=== PATIENT | female | born 1945 | race Two or more races ===

== ENCOUNTER 2020-11-12 12:22 | Inpatient (IN) | payer OTHER ==
[~2020-11-12] VITALS: Ht 167.6 cm; Wt 52.2 kg
[2020-11-12] MEDS ORDERED: methylPREDNISolone SOD SUCC 125 MG/2 ML VL IV ONE (12:30)
[2020-11-12] MEDS ORDERED: CHOLECALCIFEROL (VITD3) 2,000 UNIT CAP/TAB PO ONE (13:30)
[2020-11-12] MEDS ORDERED: ZINC SULFATE 220mg CAP or TAB PO ONE (13:30)
[2020-11-12] MEDS ORDERED: ASCORBIC ACID 500 MG TAB PO ONE (13:30)
[2020-11-12] MEDS ORDERED: AZITHROMYCIN 500MG/ 250ML 250 ML IV ONE (13:30)
[2020-11-12 13:48] LABS: Basophils # (auto) 0 10 ^3/uL (0-0.2); Eosinophils # (auto) 0 10 ^3/uL (0-0.8); Eosinophils % (auto) 1.1 % (0.0-7.0); Hematocrit 40.6 % (36.0-46.0); Hemoglobin 14.4 g/dL (12.2-16.2); Lymphocytes # (auto) 1.3 10 ^3/uL (0.4-5.4); Lymphocytes % (auto) 30.6 % (10.0-50.0); Mean Corpuscular Hgb Conc. 35.5 g/dL (32.0-36.0); Mean Corpuscular Volume 92.9 fL (80.0-100.0); Monocytes # (auto) 0.5 10 ^3/uL (0-1.3); Monocytes % (auto) 11.3 % (0.0-12.0); Neutrophils # (auto) 2.4 10 ^3/uL (1.6-8.6); Nucleated Red Blood Cells % 0.1 %; Platelet Count (auto) 239 10^3/uL (140-450); Red Blood Cells 4.37 10^6/uL (4.0-5.20); Red Cell Distribution Width 12.3 % (11.8-14.3); White Blood Cell 4.2 10^3/uL (4.4-10.8)
[2020-11-12 14:13] LABS: Albumin 2.6 g/dL (3.4-5.0); Anion Gap 5 (5-15); Blood Urea Nitrogen 12 mg/dL (7-18); Calcium 8.2 mg/dL (8.5-10.1); Carbon Dioxide 26 mmol/L (21-32); Chloride 110 mmol/L (98-107); Glucose 114 mg/dL (74-106); Potassium 3.5 mmol/L (3.5-5.1); Sodium 141 mmol/L (136-145)
[2020-11-12 14:22] LABS: Alanine Aminotransferase 22 U/L (13-56); Alkaline Phosphatase 57 U/L (45-117); Aspartate Aminotransferase 29 U/L (15-37); BUN/Creatinine Ratio 21.8; Bilirubin, Total 0.6 mg/dL (0.2-1.0); CRP High Sensitivity 4.73 mg/dL (< 0.3); GFR African American 139 mL/min; GFR Non-African American 115 mL/min; Total Protein 6.4 g/dL (6.4-8.2)
[2020-11-12] MEDS ORDERED: NITROGLYCERIN 0.4 MG SL TAB SL PRN (15:15)
[2020-11-12] MEDS ORDERED: MORPHINE SULF INJ 2 MG/ML SYRINGE 1ML IV PRN (15:15)
[2020-11-12] MEDS ORDERED: traMADol HCL 50 MG TAB PO PRN (15:30)
[2020-11-12] MEDS ORDERED: ACETAMINOPHEN 500 MG TAB PO PRN (15:30)
[2020-11-12] MEDS ORDERED: DEXTROSE (50%) 50ML SYRG IV PRN ×2 (15:30→22:15)
[2020-11-12] MEDS ORDERED: LACTULOSE 20Gm/30ML SOLN PO PRN (15:30)
[2020-11-12] MEDS ORDERED: TEMAZEPAM 15 MG CAP PO PRN (15:30)
[2020-11-12 16:00] VITALS: BP 134/72
[2020-11-12] MEDS: SODIUM CHLORIDE 0.9% 1,000 ML IV SCH (16:15)
[2020-11-12] MEDS: ACCU-CHEK COMFORT CURVE STRIP VI SCH ×2 (18:00→21:30)
[2020-11-12 19:56] VITALS: BP 130/75
[2020-11-12] MEDS: FLORASTOR (S. BOULARDII) 250 MG CAP PO SCH (21:29)
[2020-11-12] MEDS: ENOXAPARIN SOD 40 MG/0.4 ML SYRINGE SC SCH (21:30)
[2020-11-12] MEDS: BUDESONIDE (INHALATION) 180 MCG IH IN SCH (21:55)
[2020-11-12 22:00] VITALS: BP 130/75
[2020-11-12] MEDS ORDERED: DOXYCYCLINE 100 MG TAB/CAP PO SCH (22:00)
[2020-11-13] MEDS ORDERED: ATOR20TA50 PO (00:45)
[2020-11-13] MEDS ORDERED: PNEUMOCOCCAL VACC POLYS 25 MCG/0.5 ML VIAL IM ONE (01:30)
[2020-11-13] MEDS ORDERED: INFLUENZA QUAD 2020-2021 0.5 ML SYRG IM ONE (01:30)
[2020-11-13 05:00] VITALS: BP 111/65
[2020-11-13] MEDS: SODIUM CHLORIDE 0.9% 1,000 ML IV SCH (05:45)
[2020-11-13] MEDS: ACCU-CHEK COMFORT CURVE STRIP VI SCH ×4 (06:53→21:27)
[2020-11-13] MEDS: InsuLIN REG 1unit/0.01ml Soln (100units/ml) SC SCH ×4 (06:53→21:27)
[2020-11-13 07:23] LABS: Albumin 2.5 g/dL (3.4-5.0); BUN/Creatinine Ratio 26.1; Calcium 8.1 mg/dL (8.5-10.1); Potassium 3.9 mmol/L (3.5-5.1)
[2020-11-13 07:26] LABS: Bilirubin, Total 0.4 mg/dL (0.2-1.0); Total Protein 6.1 g/dL (6.4-8.2)
[2020-11-13 07:42] LABS: Basophils # (auto) 0 10 ^3/uL (0-0.2); Basophils % (auto) 0.4 % (0.0-2.0); Eosinophils # (auto) 0 10 ^3/uL (0-0.8); Hematocrit 39.5 % (36.0-46.0); Hemoglobin 13.8 g/dL (12.2-16.2); Lymphocytes # (auto) 0.8 10 ^3/uL (0.4-5.4); Lymphocytes % (auto) 23.8 % (10.0-50.0); Mean Corpuscular Hemoglobin 32.4 pg (28.0-32.0); Mean Corpuscular Hgb Conc. 34.8 g/dL (32.0-36.0); Mean Corpuscular Volume 93.2 fL (80.0-100.0); Monocytes # (auto) 0.4 10 ^3/uL (0-1.3); Monocytes % (auto) 10.4 % (0.0-12.0); Neutrophils # (auto) 2.3 10 ^3/uL (1.6-8.6); Neutrophils % (auto) 65.4 % (37.0-80.0); Nucleated Red Blood Cells % 0.4 %; Platelet Count (auto) 292 10^3/uL (140-450); Red Blood Cells 4.25 10^6/uL (4.0-5.20); Red Cell Distribution Width 12.5 % (11.8-14.3); White Blood Cell 3.5 10^3/uL (4.4-10.8)
[2020-11-13 08:00] VITALS: BP 109/66
[2020-11-13 08:42] VITALS: BP 109/66
[2020-11-13] MEDS: ALBUTEROL SULF HFA 90MCG INH 200DOSE IN PRN ×3 (10:25→19:24)
[2020-11-13] MEDS: BUDESONIDE (INHALATION) 180 MCG IH IN SCH ×2 (10:25→19:24)
[2020-11-13] MEDS: DexAMETHasone SOD PHOS 10MG/1ML VIAL INJ IV SCH (10:32)
[2020-11-13] MEDS: ASCORBIC ACID 1,000 MG TAB PO SCH (10:33)
[2020-11-13] MEDS: FLORASTOR (S. BOULARDII) 250 MG CAP PO SCH ×2 (10:33→21:20)
[2020-11-13] MEDS: ZINC SULFATE 220mg CAP or TAB PO SCH (10:33)
[2020-11-13] MEDS: levoFLOXacin 500MG 100 ML IV SCH (10:33)
[2020-11-13] MEDS: CHOLECALCIFEROL (VITD3) 2,000 UNIT CAP/TAB PO SCH (10:34)
[2020-11-13] MEDS: ENOXAPARIN SOD 40 MG/0.4 ML SYRINGE SC SCH ×2 (10:34→21:21)
[2020-11-13 13:00] VITALS: BP 116/71
[2020-11-13 17:00] VITALS: BP 120/71
[2020-11-13] MEDS ORDERED: REMDESIVIR PER PHARMACY 0 ML IV SCH (17:30)
[2020-11-13] MEDS ORDERED: REMDESIVIR 200 MG in NS 210ml LOADING DOSE ADULT IV ONE (17:45)
[2020-11-13] MEDS: ARTIFICIAL TEARS 15ml EACHEYE PRN (21:27)
[2020-11-13 22:00] VITALS: BP 112/71
[2020-11-14] MEDS: ONDANSETRON HCL 4 MG/2 ML VIAL IV PRN ×2 (00:03→11:34)
[2020-11-14 05:00] VITALS: BP 120/71
[2020-11-14] MEDS: InsuLIN REG 1unit/0.01ml Soln (100units/ml) SC SCH ×4 (06:26→22:00)
[2020-11-14] MEDS: ACCU-CHEK COMFORT CURVE STRIP VI SCH ×4 (06:26→22:05)
[2020-11-14] MEDS: ALBUTEROL SULF HFA 90MCG INH 200DOSE IN PRN ×2 (07:18→21:54)
[2020-11-14] MEDS: BUDESONIDE (INHALATION) 180 MCG IH IN SCH ×2 (07:18→21:54)
[2020-11-14 08:00] VITALS: BP 103/60
[2020-11-14 09:00] VITALS: BP 103/60
[2020-11-14] MEDS: levoFLOXacin 500MG 100 ML IV SCH (09:16)
[2020-11-14] MEDS: ZINC SULFATE 220mg CAP or TAB PO SCH (09:16)
[2020-11-14] MEDS: CHOLECALCIFEROL (VITD3) 2,000 UNIT CAP/TAB PO SCH (09:16)
[2020-11-14] MEDS: ASCORBIC ACID 1,000 MG TAB PO SCH (09:16)
[2020-11-14] MEDS: FLORASTOR (S. BOULARDII) 250 MG CAP PO SCH ×2 (09:16→22:06)
[2020-11-14] MEDS: ENOXAPARIN SOD 40 MG/0.4 ML SYRINGE SC SCH ×2 (09:16→22:06)
[2020-11-14] MEDS: DexAMETHasone SOD PHOS 10MG/1ML VIAL INJ IV SCH (09:17)
[2020-11-14 12:44] LABS: Potassium 4.1 mmol/L (3.5-5.1)
[2020-11-14 12:49] LABS: Albumin 2.5 g/dL (3.4-5.0); BUN/Creatinine Ratio 30.8; Calcium 8.2 mg/dL (8.5-10.1)
[2020-11-14 12:51] LABS: Bilirubin, Total 0.3 mg/dL (0.2-1.0); Total Protein 6.1 g/dL (6.4-8.2)
[2020-11-14 13:00] VITALS: BP 121/67
[2020-11-14] MEDS: ARTIFICIAL TEARS 15ml EACHEYE PRN ×2 (13:00→19:58)
[2020-11-14] MEDS: REMDESIVIR 100mg 100 MG in SODIUM CHL 0.9% 230 ML IV SCH (15:24)
[2020-11-14 17:00] VITALS: BP 106/67
[2020-11-14 22:00] VITALS: BP 108/68
[2020-11-15] VITALS (7 sets, daily range): BP systolic 99–114; BP diastolic 65–78
[2020-11-15] MEDS: ARTIFICIAL TEARS 15ml EACHEYE PRN ×2 (04:12→17:49)
[2020-11-15] MEDS: ACCU-CHEK COMFORT CURVE STRIP VI SCH ×4 (06:28→23:24)
[2020-11-15] MEDS: InsuLIN REG 1unit/0.01ml Soln (100units/ml) SC SCH ×4 (06:28→22:00)
[2020-11-15 06:31] LABS: Potassium 3.9 mmol/L (3.5-5.1)
[2020-11-15] MEDS: ALBUTEROL SULF HFA 90MCG INH 200DOSE IN PRN ×2 (06:40→19:56)
[2020-11-15] MEDS: BUDESONIDE (INHALATION) 180 MCG IH IN SCH ×2 (06:40→19:56)
[2020-11-15 06:45] LABS: Albumin 2.5 g/dL (3.4-5.0); BUN/Creatinine Ratio 41.1; Bilirubin, Total 0.6 mg/dL (0.2-1.0); Calcium 8.2 mg/dL (8.5-10.1); Total Protein 5.8 g/dL (6.4-8.2)
[2020-11-15] MEDS: ASCORBIC ACID 1,000 MG TAB PO SCH (10:59)
[2020-11-15] MEDS: CHOLECALCIFEROL (VITD3) 2,000 UNIT CAP/TAB PO SCH (10:59)
[2020-11-15] MEDS: levoFLOXacin 500MG 100 ML IV SCH (10:59)
[2020-11-15] MEDS: ZINC SULFATE 220mg CAP or TAB PO SCH (10:59)
[2020-11-15] MEDS: FLORASTOR (S. BOULARDII) 250 MG CAP PO SCH (10:59)
[2020-11-15] MEDS: ENOXAPARIN SOD 40 MG/0.4 ML SYRINGE SC SCH ×2 (10:59→23:24)
[2020-11-15] MEDS: DexAMETHasone SOD PHOS 10MG/1ML VIAL INJ IV SCH (11:00)
[2020-11-15] MEDS: REMDESIVIR 100mg 100 MG in SODIUM CHL 0.9% 230 ML IV SCH (15:58)
[2020-11-16] VITALS (7 sets, daily range): BP systolic 100–122; BP diastolic 62–73
[2020-11-16] MEDS: ACCU-CHEK COMFORT CURVE STRIP VI SCH ×2 (06:00→11:30)
[2020-11-16 06:08] LABS: Potassium 3.4 mmol/L (3.5-5.1)
[2020-11-16 06:18] LABS: Albumin 2.5 g/dL (3.4-5.0); BUN/Creatinine Ratio 40.7; Bilirubin, Total 0.4 mg/dL (0.2-1.0); Calcium 8.5 mg/dL (8.5-10.1); Total Protein 5.8 g/dL (6.4-8.2)
[2020-11-16] MEDS: InsuLIN REG 1unit/0.01ml Soln (100units/ml) SC SCH ×2 (06:44→11:30)
[2020-11-16] MEDS: ALBUTEROL SULF HFA 90MCG INH 200DOSE IN PRN ×2 (08:49→19:14)
[2020-11-16] MEDS: BUDESONIDE (INHALATION) 180 MCG IH IN SCH ×2 (08:50→19:14)
[2020-11-16] MEDS: levoFLOXacin 500MG 100 ML IV SCH (09:27)
[2020-11-16] MEDS: CHOLECALCIFEROL (VITD3) 2,000 UNIT CAP/TAB PO SCH (09:28)
[2020-11-16] MEDS: ZINC SULFATE 220mg CAP or TAB PO SCH (09:28)
[2020-11-16] MEDS: DexAMETHasone 4 MG TAB PO SCH (09:28)
[2020-11-16] MEDS: ASCORBIC ACID 1,000 MG TAB PO SCH (09:28)
[2020-11-16] MEDS: ENOXAPARIN SOD 40 MG/0.4 ML SYRINGE SC SCH ×2 (09:31→21:44)
[2020-11-16] MEDS: ARTIFICIAL TEARS 15ml EACHEYE PRN ×2 (10:30→18:00)
[2020-11-16] MEDS ORDERED: POTASSIUM CHL 20 Meq TABLET PO ONE (13:45)
[2020-11-16] MEDS: REMDESIVIR 100mg 100 MG in SODIUM CHL 0.9% 230 ML IV SCH (15:00)
[2020-11-17 05:00] VITALS: BP 116/67
[2020-11-17 06:59] LABS: Potassium 3.9 mmol/L (3.5-5.1)
[2020-11-17 07:11] LABS: Albumin 2.5 g/dL (3.4-5.0); Bilirubin, Total 0.4 mg/dL (0.2-1.0); Calcium 8.2 mg/dL (8.5-10.1); Total Protein 5.7 g/dL (6.4-8.2)
[2020-11-17] MEDS: BUDESONIDE (INHALATION) 180 MCG IH IN SCH (07:19)
[2020-11-17 09:01] VITALS: BP 110/64
[2020-11-17] MEDS: ZINC SULFATE 220mg CAP or TAB PO SCH (09:22)
[2020-11-17] MEDS: levoFLOXacin 500MG 100 ML IV SCH (09:22)
[2020-11-17] MEDS: ENOXAPARIN SOD 40 MG/0.4 ML SYRINGE SC SCH (09:22)
[2020-11-17] MEDS: DexAMETHasone 4 MG TAB PO SCH (09:22)
[2020-11-17] MEDS: ASCORBIC ACID 1,000 MG TAB PO SCH (09:22)
[2020-11-17] MEDS: CHOLECALCIFEROL (VITD3) 2,000 UNIT CAP/TAB PO SCH (09:22)
[2020-11-17] MEDS ORDERED: INFLUENZA QUAD 2020-2021 0.5 ML SYRG IM ONE (11:45)
[2020-11-17] MEDS ORDERED: PNEUMOCOCCAL VACC POLYS 25 MCG/0.5 ML VIAL IM ONE (12:00)
[2020-11-17 12:30] VITALS: BP 114/63
== END 2020-11-17 14:53 | disposition home or self-care (01) | DRG 177 ==
LOC: EDBD 12:22 → ER 12:22 → TELE 12:23 → TELE-WESTW 19:56
PROVIDERS: ADMIT Internal Medicine; ATTEND Internal Medicine
PROC: XW033E5 Introduction of Remdesivir Anti-infective into Peripheral Vein, Percutaneous Approach, New Technology Group 5 (ICD-10-PCS; principal; 2020-11-13)
DX: U07.1 COVID-19 (principal); J12.82 Pneumonia due to coronavirus disease 2019; E78.5 Hyperlipidemia, unspecified; J45.909 Unspecified asthma, uncomplicated; R73.9 Hyperglycemia, unspecified; Z79.82 Long term (current) use of aspirin; Z80.9 Family history of malignant neoplasm, unspecified; Z23 Encounter for immunization
CPT/HCPCS: 36415; 71045; 80053; 82728; 82962; 83036; 83605; 83880; 84484; 85025; 85379; 86141; 86850; 86900; 86901; 87040; 87426; 93005; 94640; 96365; 96366; 96375; 97163; G0378; J1100; J1815; J1956; J2405

== ENCOUNTER 2021-01-27 08:02 | Emergency (ER) | payer OTHER ==
[~2021-01-27] VITALS: Ht 154.9 cm; Wt 51.3 kg
[~2021-01-27 08:02] MED LIST: ATOR20TA50 PO
[2021-01-27 08:41] LABS: Basophils # (auto) 0.1 10 ^3/uL (0-0.2); Basophils % (auto) 0.8 % (0.0-2.0); Eosinophils # (auto) 0.2 10 ^3/uL (0-0.8); Eosinophils % (auto) 2.2 % (0.0-7.0); Hemoglobin 13.2 g/dL (12.2-16.2); Lymphocytes # (auto) 2.1 10 ^3/uL (0.4-5.4); Lymphocytes % (auto) 29.3 % (10.0-50.0); Mean Corpuscular Hemoglobin 32.2 pg (28.0-32.0); Mean Corpuscular Hgb Conc. 33.9 g/dL (32.0-36.0); Mean Corpuscular Volume 94.8 fL (80.0-100.0); Monocytes # (auto) 0.5 10 ^3/uL (0-1.3); Monocytes % (auto) 7.1 % (0.0-12.0); Neutrophils # (auto) 4.2 10 ^3/uL (1.6-8.6); Neutrophils % (auto) 60.6 % (37.0-80.0); Nucleated Red Blood Cells % 0.2 %; Platelet Count (auto) 288 10^3/uL (140-450); Red Blood Cells 4.12 10^6/uL (4.0-5.20); Red Cell Distribution Width 14.2 % (11.8-14.3)
[2021-01-27 08:59] LABS: Albumin 3.6 g/dL (3.4-5.0); Anion Gap 6 (5-15); Blood Urea Nitrogen 10 mg/dL (7-18); Calcium 8.9 mg/dL (8.5-10.1); Carbon Dioxide 26 mmol/L (21-32); Chloride 107 mmol/L (98-107); Glucose 100 mg/dL (74-106); Potassium 3.9 mmol/L (3.5-5.1); Sodium 139 mmol/L (136-145)
[2021-01-27 09:06] LABS: Alanine Aminotransferase 18 U/L (13-56); Alkaline Phosphatase 74 U/L (45-117); Aspartate Aminotransferase 16 U/L (15-37); BUN/Creatinine Ratio 13.9; Bilirubin, Total 0.6 mg/dL (0.2-1.0); GFR African American 102 mL/min; GFR Non-African American 84 mL/min
[2021-01-27 10:22] VITALS: BP 129/74
== END 2021-01-27 10:33 | disposition home or self-care (01) ==
LOC: ER 08:02
DX: F41.1 Generalized anxiety disorder (principal); J45.909 Unspecified asthma, uncomplicated; E78.5 Hyperlipidemia, unspecified
CPT/HCPCS: 36415; 80053; 84484; 85025; 93005